=== PATIENT | female | born 1945 | race Caucasian/White ===

== ENCOUNTER 2020-02-21 08:52 | Day surgery (SDC) | payer OTHER, BC ==
[2020-02-11 11:42] VITALS: BMI 23.4
[2020-02-21] MEDS ORDERED: PROPOFOL 20 ML ONE ×2 (10:17)
[2020-02-21 11:00] VITALS: TEMP 98
[2020-02-21 11:40] VITALS: BP 132/65; PULSE 80
== END 2020-02-21 11:40 | disposition home or self-care (01) ==
LOC: FASU-ENDO 08:52
PROVIDERS: ATTEND Internal Medicine Gastroenterology
PROC: 0DJD8ZZ Inspection of Lower Intestinal Tract, Via Natural or Artificial Opening Endoscopic (ICD-10-PCS; principal; 2020-02-21 10:24)
DX: Z12.11 Encounter for screening for malignant neoplasm of colon (principal); Z83.71 Family history of colonic polyps